=== PATIENT | female | born 1995 | race Two or more races ===

== ENCOUNTER 2023-12-26 09:36 | Emergency (ER) | payer OTHER ==
[~2023-12-26] VITALS: Ht 152.4 cm; Wt 59.0 kg
[2023-12-26] MEDS ORDERED: DOXY150T3 PO (10:04)
[2023-12-26] MEDS ORDERED: SULF1TAB48 PO (10:05)
[2023-12-26] MEDS ORDERED: CEFTRIAXONE 1 G VIAL ONE (10:09)
[2023-12-26] MEDS ORDERED: DOXY-326 PO (10:09)
[2023-12-26] MEDS ORDERED: LIDOCAINE 2% 20 ML MDV ONE (10:11)
[2023-12-26] MEDS: CEFTRIAXONE 1 G VIAL IM ONE (10:17)
[2023-12-26 10:20] VITALS: BP 124/78; TEMP 98.3; O2SAT 98
== END 2023-12-26 10:21 ==
LOC: ER 09:36
DX: N72 Inflammatory disease of cervix uteri (principal)
CPT/HCPCS: 99283; 96372; J0696; J3490